=== PATIENT | male | born 1990 | race Caucasian/White ===

== ENCOUNTER 2016-08-23 00:36 | Emergency (ER) | payer SELFPAY ==
[~2016-08-23] VITALS: Ht 152.4 cm; Wt 73.5 kg
[2016-08-23 00:42] VITALS: Ht 152.4 cm; Wt 73.5 kg
[2016-08-23] MEDS ORDERED: SOD CHLORIDE 0.9% 1,000 ML IV STA (01:47)
[2016-08-23] MEDS ORDERED: HYDROmorphONE 1 MG/ML SYG IV STA ×2 (01:47→05:06)
[2016-08-23] MEDS ORDERED: ONDANSETRON 4 MG INJ IV STA ×2 (01:47→05:06)
[2016-08-23 02:38] LABS: BASOPHIL # 0.1 10^3/ul (0.0-0.1); BASOPHILS % 0.4 % (0.0-2.0); EOSINOPHILS # 0.3 10^3/ul (0.0-0.5); EOSINOPHILS % 2.2 % (0.0-7.0); HEMATOCRIT 56.4 % (42.0-52.0); HEMOGLOBIN 18.8 g/dl (14.0-18.0); LYMPHOCYTES # 2.9 10^3/ul (0.8-2.9); LYMPHOCYTES % 22.2 % (15.0-51.0); MEAN CORPUSCULAR HEMOGLOBIN 29.2 pg (29.0-33.0); MEAN CORPUSCULAR HGB CONC 33.4 g/dl (32.0-37.0); MEAN CORPUSCULAR VOLUME 87.5 fl (82.0-101.0); MEAN PLATELET VOLUME 10.9 fl (7.4-10.4); MONOCYTE # 1.1 10^3/ul (0.3-0.9); MONOCYTES % 8.6 % (0.0-11.0); NEUTROPHIL # 8.8 10^3/ul (1.6-7.5); NEUTROPHILS % 66.6 % (39.0-77.0); PLATELET COUNT 184 10^3/UL (140-440); RED BLOOD COUNT 6.44 10^6/ul (4.70-6.10); RED CELL DISTRIBUTION WIDTH 13.7 % (11.5-14.5); UNCORRECTED WBC 13.1 10^3/ul (4.8-10.8); WHITE BLOOD COUNT 13.1 10^3/ul (4.8-10.8)
[2016-08-23 02:42] LABS: ADD UMIC YES; URINE BILIRUBIN (Dip) NEGATIVE (NEGATIVE); URINE BLOOD (Dip) TRACE (NEGATIVE); URINE COLOR LT. YELLOW (YELLOW); URINE GLUCOSE (Dip) NEGATIVE (NEGATIVE); URINE KETONES (Dip) NEGATIVE (NEGATIVE); URINE LEUKOCYTE ESTERASE (Dip) NEGATIVE (NEGATIVE); URINE NITRITE (Dip) NEGATIVE (NEGATIVE); URINE TOTAL PROTEIN (Dip) 1+ (NEGATIVE); URINE UROBILINOGEN (Dip) 0.2 E.U./dL (0.1-1.0)
[2016-08-23 02:47] LABS: POTASSIUM 4.1 mmol/L (3.5-5.1)
[2016-08-23 02:49] LABS: CREATININE 1.9 mg/dl (0.61-1.24)
[2016-08-23 02:50] LABS: CALCIUM 9.1 mg/dl (8.4-10.2)
[2016-08-23 02:54] LABS: SQUAMOUS EPITHELIAL CELL,UR FEW; URINE RBCS 0-2 /HPF (0)
[2016-08-23 02:56] LABS: CONDITION 1
--- NOTE | 2016-08-23 03:58 | RADRPT ---
PROCEDURE: CT ABDOMEN/PELVIS WITHOUT CONTRAST CLINICAL INDICATION: 25-year-old male with left flank pain. TECHNIQUE: The study was performed utilizing a GE [employer] VCT 64-slice CT scanner. Direct axia l sections were obtained through the abdomen and pelvis without the use of intravenous contrast mate rial. Sagittal and coronal reformations were obtained. Automated exposure control and iterative chelsey nstruction techniques were utilized for this examination. The images were reviewed on a PACS workst atDNS:Net. CTD/vol = 9.58 mGy; Total Exam DLP = 520.09 mGy-cm. COMPARISON: None. FINDINGS: The lung bases are unremarkable. There is no evidence for significant pleural effusion. The liver has a normal size and contour without focal areas of abnormal density. No intrahepatic nor extrahepa tic biliary ductal dilatation is seen. The gallbladder contains multiple small dependent gallstones without significant gallbladder wall thickening or pericholecystic fluid. The pancreas is without a reas of abnormal attenuation. The spleen is identified and has a normal size without abnormal densi ty. The adrenal glands are unremarkable. Bilateral renal cysts are present. There is a right upper pole renal cyst measuring approximately 2.6 x 1.8 x 2.4 cm. There is an additional right upper pole renal cyst measuring approximately 1.6 x 1.6 x 1.7 cm. There is a mid right renal cyst measuring ap proximately 1.2 x 1.5 x 2.5 cm. There is a large left upper pole renal cyst measuring approximately 4.7 x 4.7 x 5.0 cm. There is a left mid renal cortical cyst measuring approximately 4.5 x 4.3 x 3.8 cm. There is a left peripelvic cyst measuring approximately 2.9 x 3.2 x 3.8 cm. There is a lef t lower pole renal cyst measuring approximately 2.0 x 2.0 x 2.1 cm. No hydroureteronephrosis nor nep hroureterolithiasis is evident. The urinary bladder contains urine. There is no evidence for bowel o bstruction however radiopaque material is seen within the ascending and transverse colon. The appen el[place] is visualized and is without abnormal thickening or surrounding inflammatory reaction. The prost ate is not enlarged. There is no significant pelvic free fluid. The aortoiliac vessels are without aneurysmal dilatation. The osseous structures are intact. IMPRESSION: 1. Cholelithiasis. 2. Bilateral renal cysts. 3. No CT evidence for obstructive uropathy or renal calculi. 4. No CT evidence for appendicitis. .Onesimo June MD, Date Time Electronically viewed and signed by .Onesimo June MD, on 08/23/2016 03:58 .M/
[2016-08-23] MEDS ORDERED: SOD CHLORIDE 0.9% 1,000 ML IV ONE (04:30)
[2016-08-23 04:33] VITALS: TEMP 98
[2016-08-23] MEDS ORDERED: TRAM50TA2 PO (05:01)
--- NOTE | 2016-08-23 05:06 | ERD ---
ER Documentation Chief Complaint Date/Time DATE: 08/23/16 TIME: 05:02 Chief Complaint lower abdominal pain radiating ot back billateral x 1 day HPI This is a 25-year-old male who states he has had a sudden onset of left flank pain at 5 PM today. Pain is described as sharp and radiates to the left lower quadrant no hematuria no dysuria he has a little bit of nausea but no vomiting or diarrhea. No prior history of kidney stones. No fever no chest pain shortness of breath. 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 Medications Home Meds Active Scripts Tramadol HCl (Tramadol HCl) 50 Mg Tablet, 50 MG PO Q6, #20 TAB Prov:SUNG URIAS DO 08/23/16 Allergies Allergies: Coded Allergies: No Known Drug Allergies (Verified Allergy, Mild, 02/14/10) PMhx/Soc History of Surgery: No Anesthesia Reaction: No Hx Neurological Disorder: No Hx Respiratory Disorders: No Hx Cardiac Disorders: No Hx Psychiatric Problems: No Hx Miscellaneous Medical Probl: No Hx Alcohol Use: Yes Hx Substance Use: No Hx Tobacco Use: Yes Smoking Status: Never smoker FmHx Family History: No coronary disease Physical Exam Vitals Vital Signs Date Time Temp Pulse Resp B/P Pulse Ox O2 Delivery O2 Flow Rate FiO2 08/23/16 04:33 98.0 70 24 147/94 99 Room Air 08/23/16 03:05 73 19 142/95 98 Room Air 08/23/16 02:52 96.4 20 157/117 98 Room Air 08/23/16 02:30 94.6 100 20 134/79 99 Room Air 08/23/16 00:42 98.2 94 17 169/116 100 Physical Exam Const: Well-developed, well-nourished Head: Atraumatic, normocephalic Eyes: Normal Conjunctiva, PERRLA, EOMI, normal sclera, no nystagmus ENT: Normal External Ears, Nose and Mouth, moist mucus membranes. Neck: Full range of motion. No meningismus, no lymphadenopathy. Resp: Clear to auscultation bilaterally, no wheezing, rhonchi, rales Cardio: Regular rate and rhythm, no murmurs, S1 S2 present Abd: Soft, mild left lower quadrant tenderness, non distended. Normal bowel sounds, no guarding or rebound, no pulsitile abdominal masses or bruits Skin: No petechiae or rashes, no ecchymosis , no maculopapular rash Back: Mild left flank tenderness Ext: No cyanosis, or edema, FROM x 4, normal inspection, neurovascularly intact x 4 Neur: Awake and alert, STR 5/5 x 4, sensation intact x 4, no focal findings, cerebellum intact Psych: Normal Mood and Affect Result Diagram: 08/23/1620608/23/167 Results 24 hrs Laboratory Tests Test 08/23/16 02:07 Anion Gap 18 Basophils # 0.110^3/ul Basophils % 0.4% Blood Morphology Comment Blood Urea Nitrogen 23mg/dl Calcium Level 9.1mg/dl Carbon Dioxide Level 23mmol/L Chloride Level 104mmol/L Creatinine 1.90mg/dl Eosinophils # 0.310^3/ul Eosinophils % 2.2% Glucose Level 80mg/dl Hematocrit 56.4% Hemoglobin 18.8g/dl Lymphocytes # 2.910^3/ul Lymphocytes % 22.2% Mean Corpuscular Hemoglobin 29.2pg Mean Corpuscular Hemoglobin Concent 33.4g/dl Mean Corpuscular Volume 87.5fl Mean Platelet Volume 10.9fl Monocytes # 1.110^3/ul Monocytes % 8.6% Neutrophils # 8.810^3/ul Neutrophils % 66.6% Nucleated Red Blood Cells # 0.010^3/ul Nucleated Red Blood Cells % 0.0/100WBC Platelet Count 09800^3/UL Potassium Level 4.1mmol/L Red Blood Count 6.4410^6/ul Red Cell Distribution Width 13.7% Sodium Level 141mmol/L Urine Bilirubin NEGATIVE Urine Clarity CLEAR Urine Color LT. YELLOW Urine Glucose NEGATIVE% Urine Hemoglobin TRACE Urine Ketones NEGATIVE Urine Leukocyte Esterase NEGATIVE Urine Microscopic RBC 0-2/HPF Urine Microscopic WBC 0-2/HPF Urine Nitrite NEGATIVE Urine Specific [place] 1.020 Urine Squamous Epithelial Cells FEW Urine Total Protein 1+ Urine Urobilinogen 0.2 E.U./dL Urine pH 6.0 White Blood Count 13.110^3/ul Current Medications Medications (Trade) Dose Ordered Sig/Jarod Route PRN Reason Start Time Stop Time Status Last Admin Dose Admin Sodium Chloride (NS) 1,000 ml @ 1,000 mls/hr Q1H STAT IV 08/23/16 01:47 08/23/16 02:46 08/23/16 02:20 Hydromorphone HCl (Dilaudid) 1 mg ONCE STAT IV 08/23/16 01:47 08/23/16 01:48 08/23/16 02:20 Ondansetron HCl 4 mg 4 mg ONCE STAT IV 08/23/16 01:47 08/23/16 01:48 08/23/16 02:19 Sodium Chloride (NS) 1,000 ml @ 1,000 mls/hr Q1H ONCE IV 08/23/16 04:30 08/23/16 05:29 08/23/16 04:20 Procedures/MDM PROCEDURE: CT ABDOMEN/PELVIS WITHOUT CONTRAST CLINICAL INDICATION: 25-year-old male with left flank pain. TECHNIQUE: The study was performed utilizing a [employer] 64-slice CT scanner. Direct axial sections were obtained through the abdomen and pelvis without the use of intravenous contrast material. Sagittal and coronal reformations were obtained. Automated exposure control and iterative reconstruction techniques were utilized for this examination. The images were reviewed on a PACS workstation. CTD/vol = 9.58 mGy; Total Exam DLP = 520.09 mGy-cm. COMPARISON: None. FINDINGS: The lung bases are unremarkable. There is no evidence for significant pleural effusion. The liver has a normal size and contour without focal areas of abnormal density. No intrahepatic nor extrahepatic biliary ductal dilatation is seen. The gallbladder contains multiple small dependent gallstones without significant gallbladder wall thickening or pericholecystic fluid. The pancreas is without areas of abnormal attenuation. The spleen is identified and has a normal size without abnormal density. The adrenal glands are unremarkable. Bilateral renal cysts are present. There is a right upper pole renal cyst measuring approximately 2.6 x 1.8 x 2.4 cm. There is an additional right upper pole renal cyst measuring approximately 1.6 x 1.6 x 1.7 cm. There is a mid right renal cyst measuring approximately 1.2 x 1.5 x 2.5 cm. There is a large left upper pole renal cyst measuring approximately 4.7 x 4.7 x 5.0 cm. There is a left mid renal cortical cyst measuring approximately 4.5 x 4.3 x 3.8 cm. There is a left peripelvic cyst measuring approximately 2.9 x 3.2 x 3.8 cm. There is a left lower pole renal cyst measuring approximately 2.0 x 2.0 x 2.1 cm. No hydroureteronephrosis nor nephroureterolithiasis is evident. The urinary bladder contains urine. There is no evidence for bowel obstruction however radiopaque material is seen within the ascending and transverse colon. The appendix is visualized and is without abnormal thickening or surrounding inflammatory reaction. The prostate is not enlarged. There is no significant pelvic free fluid. The aortoiliac vessels are without aneurysmal dilatation. The osseous structures are intact. IMPRESSION: 1. Cholelithiasis. 2. Bilateral renal cysts. 3. No CT evidence for obstructive uropathy or renal calculi. 4. No CT evidence for appendicitis. .Onesimo June MD, MD Date Time Electronically viewed and signed by .Onesimo June MD, on 08/23/2016 03:58 .M/ CC: SUNG URIAS DO The patient's dehydrated with hemoconcentration and creatinine of 1.9. I had an extensive discussion with him with bundle helper about drinking plenty of water during his daily routines whether he is working or not. He received 2 L of normal saline. Feels pain is likely a small stone at the CAT scan is not picking up. He does not have any gross hematuria and his urinalysis however 10% of renal stones have normal urines. As he is presenting clinically like renal colic. He does have multiple cysts on kidneys as this should not cause any discomfort Discharge home on Ultram and follow-up Departure Diagnosis: Primary Impression: Dehydration Additional Impression: Left flank pain Condition: Stable Patient Instructions: Dehydration, Flank Pain, Uncertain Cause SUNG URIAS DO Aug 23, 2016 05:06
[2016-08-23] MEDS ORDERED: TAMS-14 PO (05:16)
[2016-08-23 05:37] VITALS: BP 148/96; PULSE 99; RESP 15
== END 2016-08-23 06:11 | disposition home or self-care (01) ==
LOC: E/R 00:36
DX: E86.0 Dehydration (principal); R40.2252 Coma scale, best verbal response, oriented, at arrival to emergency department; R11.0 Nausea; R40.2362 Coma scale, best motor response, obeys commands, at arrival to emergency department; R40.2142 Coma scale, eyes open, spontaneous, at arrival to emergency department; Z87.891 Personal history of nicotine dependence
CPT/HCPCS: 36415; 74176; 80048; 81001; 85025; 96361; 96374; 96375; 96376; 99285; J1170; J2405; J7030; 81003

== ENCOUNTER 2017-03-29 12:21 | Emergency (ER) | payer MEDICAID, OTHER ==
[~2017-03-29] VITALS: Ht 162.6 cm; Wt 89.0 kg
[~2017-03-29 12:21] MED LIST: TAMS-14 PO; TRAM50TA2 PO
[2017-03-29 12:22] VITALS: Ht 162.6 cm; Wt 89.0 kg
[2017-03-29] MEDS ORDERED: LIDOCAINE 1% (MDV) 20 ML INJ SC ONE (15:00)
[2017-03-29] MEDS ORDERED: SULF1TAB31 PO (15:38)
[2017-03-29] MEDS ORDERED: CEPH-443 PO (15:38)
--- NOTE | 2017-03-29 15:51 | ERD ---
ER Documentation Chief Complaint Date/Time DATE: 03/29/17 TIME: 15:43 Chief Complaint left possible abcess HPI Patient is a 26-year-old male with a history of hypertension who presents to the emergency department for concerns of a tender mass to his left breast. Patient states the mass occurred 1 week ago. Patient reports worsening redness and swelling. Patient denies any fevers or chills. Patient states that he did have an abscess to the affected area one year ago. Patient states the area was drained. Patient denies any fevers, chills, chest pain, shortness of breath, nausea, vomiting or LOC. Patient denies taking any medication for symptoms. ROS All systems reviewed and are negative except as per history of present illness. Medications Home Meds Active Scripts Cephalexin* (Keflex*) 500 Mg Capsule, 500 MG PO QID for 7 Days, CAP Prov:JAZMÍN HILL PA-C 03/29/17 Sulfamethoxazole/Trimethoprim* (Bactrim Ds* Tablet) 1 Each Tablet, 1 TAB PO BID , #14 TAB Prov:JAZMÍN HILL PA-C 03/29/17 Tamsulosin Hcl* (Flomax*) 0.4 Mg Cap.er.24h, 0.4 MG PO QPM, #10 CAP Prov:SUNG URIAS DO 08/23/16 Tramadol HCl (Tramadol HCl) 50 Mg Tablet, 50 MG PO Q6, #20 TAB Prov:SUNG URIAS. DO 08/23/16 Allergies Allergies: Coded Allergies: No Known Drug Allergies (Verified Allergy, Mild, 03/29/17) PMhx/Soc History of Surgery: Yes (UMBILICAL HERNIA) Anesthesia Reaction: No Hx Neurological Disorder: No Hx Respiratory Disorders: No Hx Cardiac Disorders: No Hx Psychiatric Problems: No Hx Miscellaneous Medical Probl: Yes (HTN) Hx Alcohol Use: Yes Hx Substance Use: No Hx Tobacco Use: Yes Smoking Status: Current every day smoker Physical Exam Vitals Vital Signs Date Time Temp Pulse Resp B/P Pulse Ox O2 Delivery O2 Flow Rate FiO2 03/29/17 12:22 98.5 66 18 160/68 99 Physical Exam GENERAL: Well-developed, well-nourished male. Appears in no acute distress. HEAD: Normocephalic, atraumatic. EYES: Pupils are equally reactive bilaterally. EOMs grossly intact. No conjunctival erythema. ENT: Moist mucous membranes. No uvula deviation. No kissing tonsils. NECK: Supple. No meningismus. Normal range of motion of the neck. LUNG: Clear to auscultation bilaterally. No rhonchi, wheezing, rales or coarse breath sounds. HEART: Regular rate and rhythm. No murmurs, rubs or gallops. EXTREMITIES: Equal pulses bilaterally. No peripheral clubbing, cyanosis or edema. No unilateral leg swelling. NEUROLOGIC: Alert and oriented. Moving all four extremities without any difficulty. Normal speech. Steady gait. SKIN: Normal color. 2 cm abscess palpable on the patient's left breast above his nipple, in 1 o'clock position. Nipple is slightly inverted. Area is erythematous and tender to palpation. +Fluctuance and induration noted. Keloid noted from previous incision and drainage. Results 24 hrs Current Medications Medications (Trade) Dose Ordered Sig/Jarod Route PRN Reason Start Time Stop Time Status Last Admin Dose Admin Lidocaine (Xylocaine 1% (Mdv) 20 ml) 20 ml ONCE ONCE SC 03/29/17 15:00 03/29/17 15:01 DC Procedures/MDM ED COURSE: The patient was stable throughout ED course. I kept the patient and/or family informed of laboratory and diagnostic imaging results throughout the ED course. PROCEDURES: INCISION AND DRAINAGE: The patient was verbally consented prior to procedure. Patient was explained the risks, benefits and alternatives to this procedure. Location: left breast Abscess size: 2 cm Anesthesia: local 1% lidocaine, 4 cc Preparation: The area was prepped in a sterile fashion using betadine x3 cleanses. A sterile field was prepared. Technique: A sterile 11 blade scalpel was used to make a 1 cm linear incision into the abscess. Procedure: A midline abscess incision was made using a sterile scalpel in a linear fashion. Purulent material was expressed with direct pressure. Blunt probing was used to break up loculations. Bleeding was minimal. Packing: None. The patient tolerated the procedure well with no complications. The wound was dressed in sterile gauze. The patient was neurovascularly intact post- procedure. Post-procedural wound care was discussed with the patient. MEDICAL DECISION MAKING: This is a 26-year-old male who presents emergency department for concerns of an abscess to his left breast. Patient has history of an left abscess at the same location approximately 1 year ago. Patient denied any fevers. Patient is not diabetic. Vital signs were reviewed. Patient was afebrile. Incision and drainage was performed. Purulent discharge was expressed from the abscess site. At this time, the patient's presentation most consistent with breast abscess. Low suspicion for breast mass, ACS, deep space infection, mastitis. PRESCRIPTIONS: Bactrim, Keflex DISCHARGE: At this time, the patient is stable for discharge and outpatient management. Post-procedural wound care was discussed with the patient. The patient has been advised to return to the ER in 2 days for a wound recheck. I have instructed the patient to promptly return to the ER for any new or worsening symptoms including increasing pain, fever, warmth, redness or swelling. The patient and/ or family expressed understanding of and agreement with this plan. All questions were answered. Home care instructions were provided. Patients blood pressure was elevated (>120/80) but appears stable without evidence of hypertensive emergency, hypertensive urgency or end-organ failure. I had discussion with the patient about the risks of hypertension. I have advised the patient to follow up with his/her primary care physician for outpatient monitoring and treatment for hypertension in 2-3 days. I have instructed the patient to return to the ER for any new or worsening symptoms including chest pain, shortness of breath, headache, blurred vision, confusion, nausea, vomiting or LOC. Disclaimer: Inadvertent spelling and grammatical errors are likely due to EHR/ dictation software use and do not reflect on the overall quality of patient care. Also, please note that the electronic time recorded on this note does not necessarily reflect the actual time of the patient encounter. Departure Diagnosis: Primary Impression: Abscess Condition: Stable Patient Instructions: Abscess, Incision And Drainage Referrals: [facility] YOU HAVE RECEIVED A MEDICAL SCREENING EXAM AND THE RESULTS INDICATE THAT YOU DO NOT HAVE A CONDITION THAT REQUIRES URGENT TREATMENT IN THE EMERGENCY DEPARTMENT. FURTHER EVALUATION AND TREATMENT OF YOUR CONDITION CAN WAIT UNTIL YOU ARE SEEN IN YOUR DOCTORS OFFICE WITHIN THE NEXT 1-2 DAYS. IT IS YOUR RESPONSIBILITY TO MAKE AN APPOINTMENT FOR FOLOW-UP CARE. IF YOU HAVE A PRIMARY DOCTOR --you should call your primary doctor and schedule an appointment IF YOU DO NOT HAVE A PRIMARY DOCTOR YOU CAN CALL OUR PHYSICIAN REFERRAL HOTLINE AT IF YOU CAN NOT AFFORD TO SEE A PHYSICIAN YOU CAN CHOSE FROM THE FOLLOWING COUNT INCLUDES THE [facility] [address] [facility] [address] [facility] [address] [facility] [address] [facility] [address] [facility]. [facility] [address] [facility] YOU HAVE RECEIVED A MEDICAL SCREENING EXAM AND THE RESULTS INDICATE THAT YOU DO NOT HAVE A CONDITION THAT REQUIRES URGENT TREATMENT IN THE EMERGENCY DEPARTMENT. FURTHER EVALUATION AND TREATMENT OF YOUR CONDITION CAN WAIT UNTIL YOU ARE SEEN IN YOUR DOCTORS OFFICE WITHIN THE NEXT 1-2 DAYS. IT IS YOUR RESPONSIBILITY TO MAKE AN APPOINTMENT FOR FOLOW-UP CARE. IF YOU HAVE A PRIMARY DOCTOR --you should call your primary doctor and schedule and appointment IF YOU DO NOT HAVE A PRIMARY DOCTOR YOU CAN CALL OUR PHYSICIAN REFERRAL HOTLINE AT . IF YOU CAN NOT AFFORD TO SEE A PHYSICIAN YOU CAN CHOSE FROM THE FOLLOWING [facility] INSTITUTIONS: [facility] [address] [place] [address] [facility] [address] [place] [address] [facility] [address] [place] [address] Additional Instructions: Return in 2 days for recheck. Call your primary care doctor TOMORROW for an appointment during the next 1-2 days.See the doctor sooner or return here if your condition worsens before your appointment time. JAZMÍN HILL PA-C Mar 29, 2017 15:51
== END 2017-03-29 16:29 | disposition home or self-care (01) ==
LOC: FTE 12:21
DX: N61.1 Abscess of the breast and nipple (principal); F17.210 Nicotine dependence, cigarettes, uncomplicated
CPT/HCPCS: 10060; Z7502; Z7610

== ENCOUNTER 2017-04-28 11:43 | Emergency (ER) | payer MEDICAID ==
[~2017-04-28] VITALS: Wt 77.3 kg
[~2017-04-28 11:43] MED LIST changes: +CEPH-443 PO; +SULF1TAB31 PO
--- NOTE | 2017-04-28 15:42 | RADRPT ---
PROCEDURE: Left breast ultrasound. CLINICAL INDICATION: Left breast abscess. TECHNIQUE: Ultrasound of the periareolar region of left breast was performed with a high frequency linear transducer. The images were reviewed on a high-resolution PACS monitor. COMPARISON: None available. FINDINGS: In the superficial subcutaneous tissues, there is a mixed echogenicity, primarily hypoech oic, irregular mass measuring 1.4 x 0.6 cm with partially circumscribed margins and some increased t hrough transmission, but no internal vascularity. IMPRESSION: 1. Likely sebaceous cyst in the superficial subcutaneous periareolar tissues measuring 1.4 x 0.6 cm . Superimposed infection is not excluded. BIRADS 2: Benign. Follow-up any palpable abnormality as clinically warranted. Otherwise, the patien t can begin routine annual screening mammography at age 40. A reminder letter will be sent to the patient for their next mammogram through our data base. RPTAT: HLBP .Demetrius Wilson MD, MD Date Time Electronically viewed and signed by .Demetrius Wilson MD, MD on 04/28/2017 15:42 .P/
[2017-04-28] MEDS ORDERED: DOXY100T20 PO (15:51)
--- NOTE | 2017-04-28 16:10 | ERD ---
ER Documentation Chief Complaint Date/Time DATE: 04/28/17 TIME: 16:08 Chief Complaint abscess draining to chest 1 mo ago, redness to area HPI 26-year-old male presents with a left chest wall lesion around his Sherrell. He was treated for infection approximately once a month ago with clindamycin and doxycycline. He is referred by his primary doctor for an ultrasound for some persistent draining lesion. He has no fevers, vomiting, shortness for the chest pain and has no pain. ROS All systems reviewed and are negative except as per history of present illness. Medications Home Meds Active Scripts Doxycycline Hyclate* (Doxycycline Hyclate*) 100 Mg Tablet.dr, 100 MG PO BID for 10 Days, TAB Prov:FERNANDO GRIFFIN MD 04/28/17 Cephalexin* (Keflex*) 500 Mg Capsule, 500 MG PO QID for 7 Days, CAP Prov:JAZMÍN HILL PA-C 03/29/17 Sulfamethoxazole/Trimethoprim* (Bactrim Ds* Tablet) 1 Each Tablet, 1 TAB PO BID , #14 TAB Prov:JAZMÍN HILL PA-C 03/29/17 Tamsulosin Hcl* (Flomax*) 0.4 Mg Cap.er.24h, 0.4 MG PO QPM, #10 CAP Prov:SUNG URIAS DO 08/23/16 Tramadol HCl (Tramadol HCl) 50 Mg Tablet, 50 MG PO Q6, #20 TAB Prov:SUNG URIAS DO 08/23/16 Allergies Allergies: Coded Allergies: No Known Drug Allergies (Verified Allergy, Mild, 03/29/17) PMhx/Soc History of Surgery: Yes (UMBILICAL HERNIA) Anesthesia Reaction: No Hx Neurological Disorder: No Hx Respiratory Disorders: No Hx Cardiac Disorders: No Hx Psychiatric Problems: No Hx Miscellaneous Medical Probl: Yes (HTN) Hx Alcohol Use: Yes Hx Substance Use: No Hx Tobacco Use: Yes Smoking Status: Current every day smoker Physical Exam Vitals Vital Signs Date Time Temp Pulse Resp B/P Pulse Ox O2 Delivery O2 Flow Rate FiO2 04/28/17 11:46 99.1 100 20 160/85 97 Physical Exam Const: [], [id number]. Head: Atraumatic Eyes: Normal Conjunctiva ENT: Normal External Ears, Nose and Mouth. Neck: Full range of motion..~ No meningismus. Resp: Clear to auscultation bilaterally Cardio: Regular rate and rhythm, no murmurs Abd: Soft, non tender, non distended. Normal bowel sounds Skin: No petechiae or rashes or just lateral to the left areolA there is a erythematous slightly draining approximately 1 cm papule she feels as if extends into the AREOLA. There is no induration or fluctuance appreciated. Tiny amount of expressible sebaceous material or pus is expressed. Back: No midline or flank tenderness Ext: No cyanosis, or edema Neur: Awake and alert Psych: Normal Mood and Affect Procedures/MDM Patient's primary doctor is requesting an ultrasound. Left breast ultrasound shows a lesion consistent with a sebaceous cyst. Offer was made to re-incise and drain the left nipple lesion and patient declined. He would like to try antibiotics and is worried about the pain may have as he has to work. Patient will be discharged home with a prescription of doxycycline and primary care follow-up. Recommending definitive care for his appears to be a infected sebaceous cyst. He should otherwise return sooner for fevers, vomiting, worsening redness, new or worsening symptoms. Departure Diagnosis: Primary Impression: Sebaceous cyst Condition: Stable Patient Instructions: Sebaceous Cyst, Infected (Abx Tx) Additional Instructions: ULTRASONIDO DICE PROBABLAMENTE ES UN CYSTE .Cheque otro vez con layne doctor primario en el proximo cortes or regresa para mas o nueva simptomas. FERNANDO GRIFFIN MD Apr 28, 2017 16:10
== END 2017-04-28 16:29 | disposition home or self-care (01) ==
LOC: FTE 11:43
DX: L72.3 Sebaceous cyst (principal); I10 Essential (primary) hypertension; F17.210 Nicotine dependence, cigarettes, uncomplicated
CPT/HCPCS: 76536; Z7502

== ENCOUNTER 2019-02-18 21:02 | Emergency (ER) | payer MEDICAID, OTHER ==
[~2019-02-18] VITALS: Ht 154.9 cm; Wt 69.7 kg
[~2019-02-18 21:02] MED LIST changes: +DOXY100T20 PO
[2019-02-18 21:07] VITALS: Ht 154.9 cm; Wt 69.7 kg
[2019-02-18] MEDS ORDERED: LORAZEPAM 0.5 MG TAB PO ONE (22:00)
--- NOTE | 2019-02-18 22:16 | ERD ---
ER Documentation Chief Complaint Chief Complaint shortness of breath since wednesday; HTN took BP med in am;poss anxiety HPI 28-year-old male with past medical history of hypertension on losartan who presents with evaded BP. Patient states he has been a lot of stress at home and at work, feeling a bit anxious today. On ED presentation patient blood pressure noted to be 215/105. Subsequently patient blood pressure on repeat 147/96 without any medical intervention. States he took his losartan this morning at 7 AM and reports being compliant with his medications. He otherwise denies chest pain, shortness of breath, recent illness, HIGGINS, lower extremity edema, nausea, vomiting, diarrhea, abdominal pain, urinary symptoms. He denies any family history of early cardiac . At time of evaluation patient calm in no acute distress. He denies any drug or alcohol use. ROS All systems reviewed and are negative except as per history of present illness. Medications Home Meds Active Scripts Doxycycline Hyclate* (Doxycycline Hyclate*) 100 Mg Tablet.dr, 100 MG PO BID for 10 Days, TAB Prov:FERNANDO GRIFFIN MD 04/28/17 Cephalexin* (Keflex*) 500 Mg Capsule, 500 MG PO QID for 7 Days, CAP Prov:JAZMÍN HILL PA-C 03/29/17 Sulfamethoxazole/Trimethoprim* (Bactrim Ds* Tablet) 1 Each Tablet, 1 TAB PO BID, #14 TAB Prov:JAZMÍN HILL PA-C 03/29/17 Tamsulosin Hcl* (Flomax*) 0.4 Mg Cap.er.24h, 0.4 MG PO QPM, #10 CAP Prov:SUNG URIAS DO 08/23/16 Tramadol HCl (Tramadol HCl) 50 Mg Tablet, 50 MG PO Q6, #20 TAB Prov:SUNG URIAS DO 08/23/16 Allergies Allergies: Coded Allergies: No Known Drug Allergies (Verified Allergy, Mild, 03/29/17) PMhx/Soc History of Surgery: Yes Anesthesia Reaction: No Hx Neurological Disorder: No Hx Respiratory Disorders: No Hx Cardiac Disorders: No Hx Psychiatric Problems: No Hx Miscellaneous Medical Probl: No Hx Alcohol Use: No Hx Substance Use: No Hx Tobacco Use: Yes Smoking Status: Never smoker FmHx Family History: No diabetes, No coronary disease, No other Physical Exam Vitals Vital Signs Date Temp Pulse Resp B/P (MAP) Pulse Ox O2 O2 Flow FiO2 Time Delivery Rate 02/18/19 95 19 147/96 99 Room Air 21:26 (113) 02/18/19 98.0 81 18 215/105 9 21:07 (141) Physical Exam I have reviewed the triage vital signs. Const: Well nourished, well developed, appears stated age Eyes: PERRL, no conjunctival injection HENT: NCAT, Neck supple without meningismus CV: RRR, Warm, well-perfused extremities RESP: CTAB, Unlabored respiratory effort GI: soft, non-tender, non-distended, no masses MSK: No gross deformities appreciated Skin: Warm, dry. No rashes Neuro: grossly non focal Psych: Appropriate mood and affect. Results 24 hrs Current Medications Medications Dose Sig/Jarod Start Time Status Last (Trade) Ordered Route PRN Stop Time Admin Dose Reason Admin Lorazepam 0.5 mg ONCE ONCE 02/18/19 DC 02/18/19 (Ativan) PO 22:00 22:06 02/18/19 22:01 Procedures/MDM 28-year-old male who presents with blood patient pressure. Patient blood pressure improved to safe range without medical intervention in the ED. I have low suspicion for any acute process warranting further emergent care work-up at this time including ACS, hypertensive emergency with possibility of endorgan damage, underlying infectious process or any other process warranting further emergent care work-up. Patient discharged and advised to continue taking his blood pressure medications. Strict return precautions explained in detail. Patient had a single dose of low-dose p.o. Ativan with improvement in symptoms. Now stable for discharge. EKG reviewed by myself and attending physician, no overt evidence of contiguous ST segment elevations, low suspicion for acute [place]. No overt tachy- or bradydysrhythmias. Low suspicion for WPW, long QT, HOCM, Brugada after EKG review. DISPOSITION PLAN: We discussed follow up with the patient's primary care doctor within 24 to 48 hours. Patient counseled regarding my diagnostic impression and care plan. Prior to discharge all questions answered. Pt agrees with treatment plan and understands strict return precautions. Precautionary instructions provided including instructions to return to the ER if not improving or for any worsening or changing symptoms or concerns. Disclaimer: Inadvertent spelling and grammatical errors are likely due to EHR/dictation software use and do not reflect on the overall quality of patient care. Also, please note that the electronic time recorded on this note does not necessarily reflect the actual time of the patient encounter. Departure Diagnosis: Primary Impression: Hypertension Condition: Stable Patient Instructions: High Blood Pressure (Hypertension), Anxiety Reaction Referrals: COMMUNITY CLINICS YOU HAVE RECEIVED A MEDICAL SCREENING EXAM AND THE RESULTS INDICATE THAT YOU DO NOT HAVE A CONDITION THAT REQUIRES URGENT TREATMENT IN THE EMERGENCY DEPARTMENT. FURTHER EVALUATION AND TREATMENT OF YOUR CONDITION CAN WAIT UNTIL YOU ARE SEEN IN YOUR DOCTORS OFFICE WITHIN THE NEXT 1-2 DAYS. IT IS YOUR RESPONSIBILITY TO MAKE AN APPOINTMENT FOR FOLOW-UP CARE. IF YOU HAVE A PRIMARY DOCTOR --you should call your primary doctor and schedule an appointment IF YOU DO NOT HAVE A PRIMARY DOCTOR YOU CAN CALL OUR PHYSICIAN REFERRAL HOTLINE AT IF YOU CAN NOT AFFORD TO SEE A PHYSICIAN YOU CAN CHOSE FROM THE FOLLOWING [facility] CLINICS [facility] [address] [facility]. [facility] [address] [facility] [address] [facility] [address] [facility] [address] [facility]. [facility]. [address] Additional Instructions: Call your primary care doctor TOMORROW for an appointment during the next 2-3 days.See the doctor sooner or return here if your condition worsens before your appointment time. RADHA WAGNER PA-C Feb 18, 2019 22:16
[2019-02-18 22:29] VITALS: BP 138/68; PULSE 78; RESP 16
== END 2019-02-18 22:30 | disposition home or self-care (01) ==
LOC: FTE 21:02
DX: I10 Essential (primary) hypertension (principal); Z87.891 Personal history of nicotine dependence
CPT/HCPCS: Z7502; Z7610; 93005